=== PATIENT | male | born 1960 ===

== ENCOUNTER 2022-01-13 17:24 | Inpatient (IN) | payer MEDICAID ==
[2022-01-13 18:22] LABS: PCO2 VENOUS 24 mmHG (41-51); PH,VENOUS 7.28 pH (7.33-7.43); PO2 VENOUS 53 mmHG
[2022-01-13 18:23] LABS: BASE EXCESS VENOUS -15 mmol/L ((-2)-3); BICARBONATE,VENOUS 12 mmol/L (22-29); O2 SATURATION VENOUS 84 %
[2022-01-13] MEDS ORDERED: Sodium Chloride 0.9% 1,000 ML IV SCH (18:30)
[2022-01-13 18:49] LABS: CHLORIDE,CL 94 mmol/L (98-107); SODIUM,NA 132 mmol/L (136-145)
[2022-01-13] MEDS ORDERED: Glucagon,Human Recombinant 1 MG Vial IM PRN ×2 (18:55→20:53)
[2022-01-13] MEDS ORDERED: Insulin Regular, Human 100 Units/ML 3 ML Vial IVPUSH ONE (18:55)
[2022-01-13] MEDS ORDERED: 50% Dextrose in Water 50 ML Syringe IVPUSH PRN ×2 (18:55→20:53)
[2022-01-13] MEDS: Sodium Chloride 0.9% with KCl 40mEq/1,000 ML IV SCH (19:47)
[2022-01-13] MEDS ORDERED: Potassium Chloride Riders 20 MEQ in Premix Bag 1 BAG IV ONE (20:10)
[2022-01-13] MEDS ORDERED: Ondansetron 4 MG Tab.DIS PO PRN (20:26)
[2022-01-13] MEDS ORDERED: Acetaminophen 325 MG Tab PO PRN (20:26)
[2022-01-13] MEDS: Potassium Chloride Riders 50 ML IV SCH ×2 (20:44→21:54)
[2022-01-13] MEDS ORDERED: Bisacodyl 5 MG Tab PO PRN (20:58)
[2022-01-13] MEDS: Insulin Glarg,Human.Rec.Analog 100 Unit/ML SUBCUT SCH (21:32)
[2022-01-14] MEDS ORDERED: Potassium Chloride 20 MEQ Tab.ER PO ONE ×2 (02:07→19:37)
[2022-01-14] MEDS: Sodium Chloride 0.9% with KCl 40mEq/1,000 ML IV SCH (03:24)
[2022-01-14] MEDS: Pantoprazole 40 MG Tab.CR PO SCH (06:05)
[2022-01-14] MEDS: Sertraline 50 MG Tab PO SCH (07:33)
[2022-01-14] MEDS: Multivitamins with Iron/Calcium/Folic Acid/Minerals Tab PO SCH (07:33)
[2022-01-14] MEDS: Gabapentin 100 MG Cap PO SCH (07:33)
[2022-01-14] MEDS: levETIRAcetam 500 MG Tab PO SCH ×2 (07:33→19:59)
[2022-01-14] MEDS ORDERED: Timolol Maleate 0.5% Ophth Soln 5 ML Bottle EYEBOTH SCH (08:00)
[2022-01-14 08:13] LABS: ANION GAP 21.4 mmol/L (5-15); CHLORIDE,CL 107 mmol/L (98-107); SODIUM,NA 139 mmol/L (136-145)
[2022-01-14] MEDS ORDERED: Glucagon,Human Recombinant 1 MG Vial IM PRN (08:58)
[2022-01-14] MEDS ORDERED: 50% Dextrose in Water 50 ML Syringe IVPUSH PRN (08:58)
[2022-01-14] MEDS: RIVASTIGMINE 6 MG PO SCH ×2 (10:22→20:00)
[2022-01-14] MEDS: EYE EYEBOTH SCH (10:25)
[2022-01-14] MEDS: NETARSUDIL MESYLAT EYEBOTH SCH (10:25)
[2022-01-14] MEDS: BRINZOLAMIDE EYEBOTH SCH ×2 (10:25→20:01)
[2022-01-14] MEDS: BRIMONIDINE TART EYEBOTH SCH ×2 (10:25→20:01)
[2022-01-14] MEDS: LATANOPROST EYEBOTH SCH (10:25)
[2022-01-14] MEDS: Insulin Lispro 100 Units/ML 3 ML Vial SUBCUT SCH ×3 (10:32→18:34)
[2022-01-14] MEDS: Timolol Maleate 0.5% Ophth Soln 5 ML Bottle EYEBOTH SCH ×2 (10:39→20:03)
[2022-01-14] MEDS: Enoxaparin 40 MG/0.4 ML Syringe SUBCUT SCH (11:49)
[2022-01-14] MEDS ORDERED: levETIRAcetam 500 MG Tab PO SCH (17:00)
[2022-01-14 18:49] LABS: CHLORIDE,CL 106 mmol/L (98-107); SODIUM,NA 140 mmol/L (136-145)
[2022-01-14] MEDS: Magnesium Oxide 400 MG Tab PO SCH (19:58)
[2022-01-14] MEDS: Potassium Phosphate,Mb-Db/Sodium Phosphate,Mb-Db Packet PO SCH (19:58)
[2022-01-14] MEDS: Insulin Glarg,Human.Rec.Analog 100 Unit/ML SUBCUT SCH (19:59)
[2022-01-15] MEDS: Pantoprazole 40 MG Tab.CR PO SCH (06:22)
[2022-01-15] MEDS: levETIRAcetam 500 MG Tab PO SCH ×2 (07:45→20:29)
[2022-01-15] MEDS: Potassium Phosphate,Mb-Db/Sodium Phosphate,Mb-Db Packet PO SCH (07:45)
[2022-01-15] MEDS: Sertraline 50 MG Tab PO SCH (07:45)
[2022-01-15] MEDS: Multivitamins with Iron/Calcium/Folic Acid/Minerals Tab PO SCH (07:45)
[2022-01-15] MEDS: Gabapentin 100 MG Cap PO SCH (07:45)
[2022-01-15] MEDS: BRIMONIDINE TART EYEBOTH SCH ×2 (07:47→20:30)
[2022-01-15] MEDS: BRINZOLAMIDE EYEBOTH SCH ×2 (07:47→20:30)
[2022-01-15] MEDS: Magnesium Oxide 400 MG Tab PO SCH (07:47)
[2022-01-15] MEDS: LATANOPROST EYEBOTH SCH (07:49)
[2022-01-15] MEDS: EYE EYEBOTH SCH (07:49)
[2022-01-15] MEDS: NETARSUDIL MESYLAT EYEBOTH SCH (07:49)
[2022-01-15] MEDS: RIVASTIGMINE 6 MG PO SCH ×2 (07:49→20:31)
[2022-01-15] MEDS: Insulin Lispro 100 Units/ML 3 ML Vial SUBCUT SCH ×3 (07:50→17:55)
[2022-01-15 07:51] LABS: CHLORIDE,CL 104 mmol/L (98-107); SODIUM,NA 139 mmol/L (136-145)
[2022-01-15] MEDS: Timolol Maleate 0.5% Ophth Soln 5 ML Bottle EYEBOTH SCH ×2 (07:54→20:33)
[2022-01-15] MEDS ORDERED: Potassium Chloride 10 MEQ Tab.ER PO ONE (09:51)
[2022-01-15] MEDS: Potassium Chloride 10 MEQ Tab.ER PO SCH ×2 (10:15→17:13)
[2022-01-15] MEDS: Enoxaparin 40 MG/0.4 ML Syringe SUBCUT SCH (11:27)
[2022-01-15] MEDS ORDERED: Potassium Chloride 10 MEQ Tab.ER PO SCH (19:07)
[2022-01-15] MEDS: Insulin Glarg,Human.Rec.Analog 100 Unit/ML SUBCUT SCH (20:30)
[2022-01-16] MEDS: Multivitamins with Iron/Calcium/Folic Acid/Minerals Tab PO SCH (07:36)
[2022-01-16] MEDS: Potassium Chloride 10 MEQ Tab.ER PO SCH ×2 (07:37→18:41)
[2022-01-16] MEDS: Gabapentin 100 MG Cap PO SCH (07:37)
[2022-01-16] MEDS: Pantoprazole 40 MG Tab.CR PO SCH (07:37)
[2022-01-16] MEDS: Potassium Phosphate,Mb-Db/Sodium Phosphate,Mb-Db Packet PO SCH (07:37)
[2022-01-16] MEDS: Magnesium Oxide 400 MG Tab PO SCH (07:37)
[2022-01-16] MEDS: levETIRAcetam 500 MG Tab PO SCH ×2 (07:37→19:42)
[2022-01-16] MEDS: Sertraline 50 MG Tab PO SCH (07:37)
[2022-01-16] MEDS: Insulin Lispro 100 Units/ML 3 ML Vial SUBCUT SCH ×3 (07:38→18:25)
[2022-01-16] MEDS: BRIMONIDINE TART EYEBOTH SCH ×2 (07:38→19:42)
[2022-01-16] MEDS: Timolol Maleate 0.5% Ophth Soln 5 ML Bottle EYEBOTH SCH ×2 (07:38→19:42)
[2022-01-16] MEDS: LATANOPROST EYEBOTH SCH (07:38)
[2022-01-16] MEDS: NETARSUDIL MESYLAT EYEBOTH SCH (07:38)
[2022-01-16] MEDS: BRINZOLAMIDE EYEBOTH SCH ×2 (07:38→19:42)
[2022-01-16] MEDS: EYE EYEBOTH SCH (07:38)
[2022-01-16] MEDS: RIVASTIGMINE 6 MG PO SCH ×2 (07:39→19:46)
[2022-01-16 08:38] LABS: CHLORIDE,CL 101 mmol/L (98-107); SODIUM,NA 137 mmol/L (136-145)
[2022-01-16 08:43] LABS: ANION GAP 15.7 mmol/L (5-15)
[2022-01-16] MEDS: Enoxaparin 40 MG/0.4 ML Syringe SUBCUT SCH (11:50)
[2022-01-16] MEDS ORDERED: Iopamidol 612 MG/ML 100 ML Bottle IVPUSH ONE (12:52)
[2022-01-16] MEDS: Metoclopramide 10 MG Tab PO SCH ×2 (15:44→20:52)
[2022-01-16] MEDS: Polyethylene Glycol 3350 Powder 17 GM Packet PO SCH (15:44)
[2022-01-16] MEDS: Insulin Glarg,Human.Rec.Analog 100 Unit/ML SUBCUT SCH (19:43)
[2022-01-17] MEDS: Metoclopramide 10 MG Tab PO SCH ×2 (03:58→08:47)
[2022-01-17] MEDS: Pantoprazole 40 MG Tab.CR PO SCH (06:00)
[2022-01-17] MEDS: Gabapentin 100 MG Cap PO SCH (08:01)
[2022-01-17] MEDS: Potassium Chloride 10 MEQ Tab.ER PO SCH (08:01)
[2022-01-17] MEDS: Sertraline 50 MG Tab PO SCH (08:01)
[2022-01-17] MEDS: Magnesium Oxide 400 MG Tab PO SCH (08:01)
[2022-01-17] MEDS: levETIRAcetam 500 MG Tab PO SCH (08:01)
[2022-01-17] MEDS: Multivitamins with Iron/Calcium/Folic Acid/Minerals Tab PO SCH (08:01)
[2022-01-17] MEDS: Polyethylene Glycol 3350 Powder 17 GM Packet PO SCH (08:02)
[2022-01-17] MEDS: Potassium Phosphate,Mb-Db/Sodium Phosphate,Mb-Db Packet PO SCH (08:02)
[2022-01-17] MEDS: RIVASTIGMINE 6 MG PO SCH (08:02)
[2022-01-17] MEDS: LATANOPROST EYEBOTH SCH (08:05)
[2022-01-17] MEDS: EYE EYEBOTH SCH (08:05)
[2022-01-17] MEDS: NETARSUDIL MESYLAT EYEBOTH SCH (08:05)
[2022-01-17] MEDS: BRINZOLAMIDE EYEBOTH SCH (08:05)
[2022-01-17] MEDS: BRIMONIDINE TART EYEBOTH SCH (08:05)
[2022-01-17] MEDS: Insulin Lispro 100 Units/ML 3 ML Vial SUBCUT SCH (08:06)
[2022-01-17] MEDS: Timolol Maleate 0.5% Ophth Soln 5 ML Bottle EYEBOTH SCH (08:08)
[2022-01-17] MEDS ORDERED: metFORMIN 500 MG Tab PO SCH (08:15)
[2022-01-18] MEDS ORDERED: Lactulose Soln 10 GM/15 ML 30 ML UD Cup PO SCH (08:00)
== END 2022-01-17 10:48 | DRG 638 ==
LOC: VM.ED 17:24 → VM.MS 19:37 → UNDODISIN 01-17 10:48
PROVIDERS: ADMIT Family Medicine; ATTEND Internal Medicine
DX: E11.65 Type 2 diabetes mellitus with hyperglycemia (principal); E87.8 Other disorders of electrolyte and fluid balance, not elsewhere classified; E11.10 Type 2 diabetes mellitus with ketoacidosis without coma; B02.29 Other postherpetic nervous system involvement; F32.A Depression, unspecified; E66.9 Obesity, unspecified; M19.90 Unspecified osteoarthritis, unspecified site; K21.9 Gastro-esophageal reflux disease without esophagitis; Y90.9 Presence of alcohol in blood, level not specified; Z88.8 Allergy status to other drugs, medicaments and biological substances; F41.1 Generalized anxiety disorder; K70.9 Alcoholic liver disease, unspecified; J44.9 Chronic obstructive pulmonary disease, unspecified; W19.XXXA Unspecified fall, initial encounter; Z20.822 Contact with and (suspected) exposure to COVID-19; Z66 Do not resuscitate; H40.9 Unspecified glaucoma; F10.97 Alcohol use, unspecified with alcohol-induced persisting dementia; K59.00 Constipation, unspecified; Z88.5 Allergy status to narcotic agent; Z79.899 Other long term (current) drug therapy; Z68.29 Body mass index [BMI] 29.0-29.9, adult
CPT/HCPCS: 36415; 71046; 74177; 80053; 80069; 81001; 82803; 82947; 83690; 83735; 84100; 84132; 84484; 85025; 85610; 86140; 93005; 93010; 99284; 99285-25; A9270-GY; J1650; J1815-GY; J3480; J7030; Q9967; U0002